=== PATIENT | female | born 1985 | race Caucasian/White ===

== ENCOUNTER 2020-05-30 07:52 | Day surgery (SDC) | payer OTHER ==
[~2020-05-30 07:52] MED LIST: LOESTRIN 24 FE1 TAB; VITAMIN C500 M6 PO
== END 2020-05-30 16:57 | disposition home or self-care (01) ==
LOC: CIR.AMB 07:52
PROVIDERS: ATTEND Obstetrics & Gynecology
DX: N87.1 Moderate cervical dysplasia (principal); Z20.828 Contact with and (suspected) exposure to other viral communicable diseases; N72 Inflammatory disease of cervix uteri